=== PATIENT | female | born 1995 | race Hispanic/Latino ===

== ENCOUNTER 2020-05-14 14:50 | Inpatient (IN) | payer OTHER ==
[2020-05-14 15:37] VITALS: BMI 34.7
[2020-05-14] MEDS ORDERED: hydrALAZINE 20 MG/ML VIAL SLOW IVP PRN (16:28)
[2020-05-14] MEDS ORDERED: Lactated Ringer's 1,000 ML IV SCH (16:30)
[2020-05-14 16:52] LABS: Bilirubin Neg (Negative); Blood, Urine 25 (Negative); Clarity Slightly Cloudy (Clear); Glucose, Urine (Dipstick) Normal (Negative); Ketone, Urine 15 mg/dL (Negative); Leukocyte 500 (Negative); Nitrite Negative (Negative); Protein, Urine (Dipstick) 100 mg/dl (Neg-Trace); Urobilinogen Normal mg/dL (Less than 2); pH, Urine 6.5 (5.0-9.0)
[2020-05-14 16:58] LABS: #Eosinphils 0.1 10x3/uL (0.0-0.5); #Monocytes 0.6 10x3/uL (0.0-1.1); #Neutrophils 7.1 10x3/uL (1.5-8.4); %Basophils 0.1 % (0.0-2.0); %Eosinophils 0.5 % (0.0-6.0); %Lymphocytes 16.6 % (18.0-47.0); %Monocytes 6.3 % (0.0-10.0); Hemoglobin 9.4 g/dL (12.0-15.5); Mean Corpuscular HGB CONC 34.1 g/dL (32.0-36.0); Mean Corpuscular Hemoglobin 26.8 pg (27.0-33.0); Mean Corpuscular Volume 78.6 fl (81.6-98.3); Mean Platelet Volume 8.9 fl (7.4-10.4); Platelet Count 434 10x3/uL (150-450); RBC Distribution Width 12.5 % (11.5-14.5); Red Blood Cell (RBC) Count 3.51 10x6/uL (3.90-5.03); White Blood Cell (WBC) Count 9.4 10x3/uL (3.5-10.5)
[2020-05-14 17:01] LABS: Squamous Epithelial 0-3 HPF (0-3); Transitional Epithelial 0-3 HPF (None Seen); WBC/HPF Greater Than 50 HPF (0-3)
[2020-05-14 17:02] LABS: Bacteria/HPF 3+ HPF (None Seen)
[2020-05-14] MEDS ORDERED: Dextrose 5% in Water 1,000 ML IV PRN (17:08)
[2020-05-14 17:09] LABS: ALT (SGPT) 58 U/L (8-55); AST (SGOT) 85 U/L (5-34); Albumin 2.8 g/dL (3.5-5.0); Alkaline Phosphatase 136 U/L (40-110); Anion Gap 14 mmol/L (10-20); BUN (Urea Nitrogen) 9 mg/dL (7.0-18.7); Bilirubin, Total 0.2 mg/dL (0.2-1.2); Calc. Creatinine Clearance 197 mL/min (70-130); Calcium 7.9 mg/dL (7.8-10.44); Carbon Dioxide 21 mmol/L (22-29); Globulin 3.3 g/dL (2.4-3.5); Glucose 69 mg/dL (70-105); Potassium 3.9 mmol/L (3.5-5.1); Protein, Total 6.1 g/dL (6.0-8.3)
[2020-05-14 17:27] LABS: Chloride 107 mmol/L (98-107); Sodium 138 mmol/L (136-145)
[2020-05-14] MEDS ORDERED: cefTRIAXone\\ROCEPHIN 1 GM VIAL ONE (17:58)
[2020-05-14] MEDS: cefTRIAXone\\ROCEPHIN 1 GM in Sodium Chloride 0.9% 100 ML IVPB SCH (18:26)
[2020-05-14] MEDS: Lactated Ringer's 1,000 ML IV SCH (18:26)
[2020-05-14] MEDS: Lantus 1000 UNITS/10 ML VIAL SC SCH (23:29)
[2020-05-15] MEDS: Acetaminophen 500 MG TAB PO PRN (00:20)
[2020-05-15] MEDS: Lactated Ringer's 1,000 ML IV SCH ×2 (00:27→15:53)
[2020-05-15] MEDS: HumaLOG 300 UNITS/3 ML VIAL SC PRN ×4 (00:57→14:25)
[2020-05-15 08:12] LABS: ALT (SGPT) 53 U/L (8-55); AST (SGOT) 65 U/L (5-34); Albumin 2.6 g/dL (3.5-5.0); Alkaline Phosphatase 123 U/L (40-110); Anion Gap 15 mmol/L (10-20); BUN (Urea Nitrogen) 7 mg/dL (7.0-18.7); Bilirubin, Total 0.2 mg/dL (0.2-1.2); Calc. Creatinine Clearance 211 mL/min (70-130); Calcium 7.4 mg/dL (7.8-10.44); Carbon Dioxide 19 mmol/L (22-29); Chloride 106 mmol/L (98-107); Globulin 2.9 g/dL (2.4-3.5); Glucose 152 mg/dL (70-105); Potassium 3.6 mmol/L (3.5-5.1); Protein, Total 5.5 g/dL (6.0-8.3); Sodium 136 mmol/L (136-145)
[2020-05-15] MEDS: Aspirin 81 mg Enteric Coated Tablet PO SCH (09:19)
[2020-05-15] MEDS: Prenatal Vitamin 1 TAB PO SCH (09:19)
[2020-05-15] MEDS: Folic Acid 1 MG TAB PO SCH (09:19)
[2020-05-15] MEDS: Lantus 1000 UNITS/10 ML VIAL SC SCH ×2 (09:20→21:10)
[2020-05-15] MEDS: HumaLOG 300 UNITS/3 ML VIAL SC SCH ×3 (09:21→16:59)
[2020-05-15 12:26] LABS: SARS-CoV-2 PCR by NAA DETECTED (NotDetected)
[2020-05-15] MEDS: cefTRIAXone\\ROCEPHIN 1 GM in Sodium Chloride 0.9% 100 ML IVPB SCH (16:59)
[2020-05-16] MEDS: Acetaminophen 500 MG TAB PO PRN ×4 (00:45→22:44)
[2020-05-16] MEDS: Folic Acid 1 MG TAB PO SCH (08:03)
[2020-05-16] MEDS: Aspirin 81 mg Enteric Coated Tablet PO SCH (08:04)
[2020-05-16] MEDS: Prenatal Vitamin 1 TAB PO SCH (08:04)
[2020-05-16] MEDS: HumaLOG 300 UNITS/3 ML VIAL SC SCH ×3 (08:05→17:16)
[2020-05-16] MEDS: Lantus 1000 UNITS/10 ML VIAL SC SCH ×2 (08:05→21:08)
[2020-05-16] MEDS ORDERED: Sodium Chloride 0.9% 100 ML ONE (17:05)
[2020-05-16] MEDS ORDERED: cefTRIAXone\\ROCEPHIN 1 GM VIAL ONE (17:05)
[2020-05-16] MEDS: cefTRIAXone\\ROCEPHIN 1 GM in Sodium Chloride 0.9% 100 ML IVPB SCH (17:15)
[2020-05-17] MEDS ORDERED: Lactated Ringer's 500 ML IV SCH (01:00)
[2020-05-17] MEDS ORDERED: Acetaminophen 500 MG TAB PO SCH ×2 (01:00→23:59)
[2020-05-17] MEDS: Acetaminophen 500 MG TAB PO PRN ×3 (08:51→20:28)
[2020-05-17] MEDS: Folic Acid 1 MG TAB PO SCH (08:51)
[2020-05-17] MEDS: Prenatal Vitamin 1 TAB PO SCH (08:52)
[2020-05-17] MEDS: Aspirin 81 mg Enteric Coated Tablet PO SCH (08:52)
[2020-05-17] MEDS: Lantus 1000 UNITS/10 ML VIAL SC SCH ×2 (09:44→18:59)
[2020-05-17] MEDS: HumaLOG 300 UNITS/3 ML VIAL SC SCH ×3 (09:44→17:39)
[2020-05-17] MEDS ORDERED: Cefdinir 300 MG CAP PO SCH (10:30)
[2020-05-17] MEDS: Dextrose 50% Abboject 50 ML SYRINGE SLOW IVP PRN ×2 (11:52→15:45)
[2020-05-17] MEDS ORDERED: guaiFENesin ER 600 MG TAB PO PRN (16:30)
[2020-05-17] MEDS: Cefdinir 300 MG CAP PO SCH (20:28)
[2020-05-17] MEDS ORDERED: HumaLOG 300 UNITS/3 ML VIAL SC PRN (21:16)
[2020-05-17] MEDS ORDERED: Dextrose 5%-Lactated Ringers 1,000 ML IV SCH (21:30)
[2020-05-17] MEDS: Dextrose 5%-Lactated Ringers 1,000 ML IV SCH (22:00)
[2020-05-18] MEDS: Acetaminophen 500 MG TAB PO PRN ×3 (03:37→22:12)
[2020-05-18] MEDS: Ondansetron PF 4 MG/2 ML Vial IVP PRN ×2 (03:45→21:30)
[2020-05-18] MEDS: Dextrose 5%-Lactated Ringers 1,000 ML IV SCH (04:34)
[2020-05-18] MEDS: Folic Acid 1 MG TAB PO SCH (08:49)
[2020-05-18] MEDS: Aspirin 81 mg Enteric Coated Tablet PO SCH (08:49)
[2020-05-18] MEDS ORDERED: Dexamethasone 4 mg/ml Vial SLOW IVP SCH (09:00)
[2020-05-18] MEDS: Cefdinir 300 MG CAP PO SCH ×2 (09:54→20:53)
[2020-05-18] MEDS: Prenatal Vitamin 1 TAB PO SCH (09:54)
[2020-05-18] MEDS: Dextromethorphan Polistirex 30 MG/5 ML (89 ML BOTTLE) PO PRN ×2 (11:40→20:53)
[2020-05-18] MEDS ORDERED: Insulin Glargine 20 UNITS in Pre-Filled Syringe 1 EACH SC SCH (11:45)
[2020-05-18 11:48] LABS: #Monocytes 0.2 10x3/uL (0.0-1.1); %Basophils 0.1 % (0.0-2.0); %Eosinophils 0.1 % (0.0-6.0); %Lymphocytes 9.1 % (18.0-47.0); %Monocytes 1.9 % (0.0-10.0); %Neutrophils 88.1 % (40.0-75.0); Hemoglobin 8.9 g/dL (12.0-15.5); Mean Corpuscular HGB CONC 33.2 g/dL (32.0-36.0); Mean Corpuscular Hemoglobin 25.9 pg (27.0-33.0); Mean Corpuscular Volume 78.1 fl (81.6-98.3); Mean Platelet Volume 8.8 fl (7.4-10.4); Platelet Count 392 10x3/uL (150-450); RBC Distribution Width 12.6 % (11.5-14.5); Red Blood Cell (RBC) Count 3.43 10x6/uL (3.90-5.03)
[2020-05-18 11:59] LABS: Phosphorus 3.6 mg/dL (2.3-4.7)
[2020-05-18] MEDS ORDERED: Lantus 1000 UNITS/10 ML VIAL SC SCH (12:00)
[2020-05-18 12:01] LABS: CRP (Inflammatory) 7.72 mg/dL (= or < 0.5); Magnesium 1.4 mg/dL (1.6-2.6)
[2020-05-18 12:31] LABS: ALT (SGPT) 47 U/L (8-55); AST (SGOT) 72 U/L (5-34); Albumin 2.6 g/dL (3.5-5.0); Alkaline Phosphatase 128 U/L (40-110); Anion Gap 14 mmol/L (10-20); BUN (Urea Nitrogen) 10 mg/dL (7.0-18.7); Bilirubin, Total 0.3 mg/dL (0.2-1.2); Calc. Creatinine Clearance 197 mL/min (70-130); Calcium 7.7 mg/dL (7.8-10.44); Carbon Dioxide 21 mmol/L (22-29); Chloride 101 mmol/L (98-107); Glucose 190 mg/dL (70-105); Protein, Total 5.6 g/dL (6.0-8.3); Sodium 132 mmol/L (136-145)
[2020-05-18] MEDS: HumaLOG 300 UNITS/3 ML VIAL SC PRN (12:40)
[2020-05-18] MEDS ORDERED: REMDESIVIR (EUA) 200 MG in Sodium Chloride 0.9% 250 ML 210 ML IV SCH (15:00)
[2020-05-18] MEDS ORDERED: Famotidine 20 MG TAB PO PRN (16:33)
[2020-05-18] MEDS ORDERED: Heparin 5,000 UNITS/ML VIAL SC SCH (21:00)
[2020-05-18] MEDS ORDERED: Labetalol HCl 100 MG/20 ML VIAL ONE (21:03)
[2020-05-18] MEDS: Labetalol HCl 100 MG/20 ML VIAL SLOW IVP PRN ×2 (21:30→22:16)
[2020-05-18] MEDS: Benzonatate 100 MG CAP PO PRN (21:52)
[2020-05-18] MEDS ORDERED: Calcium Carbonate 500 MG ChewTAB PO PRN (22:04)
[2020-05-18] MEDS ORDERED: Labetalol HCl 100 MG/20 ML VIAL SLOW IVP SCH (22:15)
[2020-05-18] MEDS ORDERED: Sodium Chloride 0.9% 500 ML IV SCH (22:30)
[2020-05-18 22:57] LABS: Anion Gap 17 mmol/L (10-20); BUN (Urea Nitrogen) 12 mg/dL (7.0-18.7); Calc. Creatinine Clearance 171 mL/min (70-130); Calcium 7.7 mg/dL (7.8-10.44); Carbon Dioxide 17 mmol/L (22-29); Chloride 102 mmol/L (98-107); Glucose 269 mg/dL (70-105); Glucose POC Confirmation 269 mg/dl (70-105); Potassium 3.7 mmol/L (3.5-5.1); Sodium 132 mmol/L (136-145)
[2020-05-19] MEDS: HumaLOG 300 UNITS/3 ML VIAL SC PRN (01:00)
[2020-05-19 01:29] VITALS: BP 116/58; TEMP 100
[2020-05-19] MEDS: Benzonatate 100 MG CAP PO PRN (01:42)
[2020-05-19] MEDS: Dextromethorphan Polistirex 30 MG/5 ML (89 ML BOTTLE) PO PRN (01:42)
[2020-05-19] MEDS ORDERED: REMDESIVIR (EUA) 100 MG in Sodium Chloride 0.9% 250 ML 230 ML IV SCH (15:30)
== END 2020-05-19 02:51 | disposition short-term general hospital (02) | DRG 831 ==
LOC: CSHLD/OP 14:50 → CSHLD 17:34 → CSHANTE 20:55 → CSHICU 05-17 22:05
PROVIDERS: ADMIT Emergency Medicine; ATTEND Emergency Medicine
PROC: 4A1HXCZ Monitoring of Products of Conception, Cardiac Rate, External Approach (ICD-10-PCS; 2020-05-14)
PROC: XW033E5 Introduction of Remdesivir Anti-infective into Peripheral Vein, Percutaneous Approach, New Technology Group 5 (ICD-10-PCS; principal; 2020-05-18)
DX: O98.813 Other maternal infectious and parasitic diseases complicating pregnancy, third trimester (principal); U07.1 COVID-19; J12.82 Pneumonia due to coronavirus disease 2019; A41.89 Other specified sepsis; O14.13 Severe pre-eclampsia, third trimester; J96.01 Acute respiratory failure with hypoxia; O23.03 Infections of kidney in pregnancy, third trimester; O24.013 Pre-existing type 1 diabetes mellitus, in pregnancy, third trimester; E10.649 Type 1 diabetes mellitus with hypoglycemia without coma; O34.219 Maternal care for unspecified type scar from previous cesarean delivery; O36.8330 Maternal care for abnormalities of the fetal heart rate or rhythm, third trimester, not applicable or unspecified; O99.513 Diseases of the respiratory system complicating pregnancy, third trimester; O98.513 Other viral diseases complicating pregnancy, third trimester; Z3A.28 28 weeks gestation of pregnancy; Z79.4 Long term (current) use of insulin; Z79.82 Long term (current) use of aspirin; Z79.899 Other long term (current) drug therapy
CPT/HCPCS: 36415; 36416; 71046; 80053; 81001; 82570; 82728; 83615; 83735; 84100; 84145; 84156; 85025; 85379; 86140; 87040; 87077; 87086; 87186; 87635; 93005; 93010; 99285; J0696; J1100; J1644; J1815; J2405; J3490; J7050; U0003; U0005